=== PATIENT | female | born 1970 ===

== ENCOUNTER 2019-07-01 15:25 | Emergency (ER) | payer SELFPAY ==
[~2019-07-01] VITALS: Ht 165.1 cm; Wt 79.0 kg
[2019-07-01] MEDS ORDERED: ALBUTEROL (0.083%) 2.5MG/3ML NEB HHN ONE (16:00)
[2019-07-01] MEDS ORDERED: PREDNISONE 20MG TABLET PO ONE (16:00)
[2019-07-01] MEDS ORDERED: AZITHROMYCIN 500 MG TABLET PO ONE (17:45)
[2019-07-01 18:03] VITALS: BP 149/80
== END 2019-07-02 06:37 | disposition home or self-care (01) ==
LOC: ER 19:24
DX: J18.9 Pneumonia, unspecified organism (principal); F12.10 Cannabis abuse, uncomplicated; F17.210 Nicotine dependence, cigarettes, uncomplicated; Z71.6 Tobacco abuse counseling; Z98.890 Other specified postprocedural states
CPT/HCPCS: 71045; 94640; 99283; 99406; J7512; Z7610